=== PATIENT | female | born 1940 | race Caucasian/White ===

== ENCOUNTER 2019-03-27 13:27 | Inpatient (IN) ==
[2019-03-27] MEDS ORDERED: IOPAMIDOL 100 ML BOTTLE IV ONE (13:28)
--- NOTE | 2019-03-27 13:49 | Emergency Department Note ---
Neck Injury/Pain HPI - General Chief Complaint: Neck Pain/Injury Stated Complaint: right neck swelling, sorethroat Time Seen by Provider: 03/27/19 13:43 Mode of arrival: ambulatory Limitations: no limitations - History of Present Illness HPI Narrative: Patient has had a swelling develop in the right side of her neck over the last week. No history of trauma she does have a slight sore throat. - Related Data Home Medications Medication Instructions Recorded Confirmed ascorbic acid (vitamin C) 1,000 mg 1,000 mg PO QDAY tab 12/09/15 03/27/19 tablet calcium carbonate-vitamin D3 600 1 cap PO DAILY 12/09/15 03/27/19 mg (1,500 mg)-400 unit capsule coenzyme Q10 300 mg capsule 300 mg PO QDAY 12/09/15 03/27/19 glucosamine HCl 1,500 mg tablet 1,500 mg PO QDAY 12/09/15 03/27/19 multivitamin tablet 1 tab PO QDAY tab 12/09/15 03/27/19 cholecalciferol (vitamin D3) 5,000 5,000 unit PO QDAY 11/21/18 03/27/19 unit capsule hydrochlorothiazide 12.5 mg tablet 12.5 mg PO BID tab 01/09/19 03/27/19 omega-3 fatty acids 1,000 mg 1,000 mg PO QDAY 01/09/19 01/09/19 capsule Previous Rx's Medication Instructions Recorded carvedilol 25 mg tablet 25 mg PO BID #180 tab 11/21/18 raloxifene 60 mg tablet 60 mg PO QDAY #90 tab 11/21/18 Allergies Allergy/AdvReac Type Severity Reaction Status Date / Time No Known Drug Allergies Allergy Verified 03/27/19 13:30 Review of Systems All systems ED: reviewed and negative except as stated. 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 Does not pulsate and is quite separate from the carotid artery. It is a little tender. I do not detect fluctuance. Limitations: no limitations General appearance: alert Head: atraumatic Neurological: Present: alert Psychiatric: Present: normal affect Skin: Present: warm, dry Course Vital Signs Temperature 98.2 F 03/27/19 13:27 Pulse Rate 61 03/27/19 13:27 Respiratory Rate 18 03/27/19 13:27 Blood Pressure 149/65 03/27/19 13:27 Pulse Oximetry (%) 98 03/27/19 13:27 Temperature 98.2 F 03/27/19 20:01 Pulse Rate 75 03/27/19 20:01 Respiratory Rate 18 03/27/19 20:01 Blood Pressure 152/60 03/27/19 20:01 Pulse Oximetry (%) 94 03/27/19 20:01 Neck Pain - MDM Narrative Medical decision making narrative: CT shows a 5 cm abscess in the right parotid gland with thrombosis of the right external jugular vein. I did discuss this case with Dr. Gifford who recommended Eliquis after I&D. Dr. Jeffery came and saw the patient and decided to take her to the operating room for formal exploration and I&D. - Lab Data Lab results reviewed: Yes I reviewed the patient's lab results. Result diagrams: 03/27/19 15:33 03/27/19 15:33 Lab Results 03/27/19 03/27/19 03/27/19 Range/Units 14:00 15:33 15:33 WBC 8.7 (4.5-11.0) K/mcL RBC 3.42 L (4.00-5.20) M/mcL Hgb 10.6 L (12.0-15.0) g/dL Hct 31.7 L (36.0-48.0) % POC Hct 31.0 L (36.0-48.0) % MCV 92.8 (80.0-100.0) fL MCH 30.9 (26.0-34.0) pg MCHC 33.3 (31.0-36.0) g/dL RDW 12.4 (11.5-14.5) % Plt Count 220 (140-440) K/mcL MPV 8.2 (7.4-10.4) fL Gran % 74.3 (38.0-78.0) % Lymph % (Auto) 14.5 L (15.5-49.0) % [place] % (Auto) 10.2 (1.0-12.0) % Eos % (Auto) 0.7 (0.0-7.0) % Baso % (Auto) 0.3 (0.0-2.0) % Gran # 6.5 (1.8-8.0) K/mcL Lymph # (Auto) 1.3 L (1.5-4.8) K/mcL [place] # (Auto) 0.9 (0.1-0.9) K/mcL Eos # (Auto) 0.1 (0.0-0.7) K/mcL Baso # (Auto) 0 (0.0-0.3) K/mcL POC Sodium 124 L (133-145) mmol/L Sodium 124 L (133-145) mmol/L POC Potassium 3.2 L (3.3-5.1) mmol/L Potassium 3.3 (3.3-5.1) mmol/L POC Chloride 85 L (96-108) mmol/L Chloride 86 L (96-108) mmol/L Carbon Dioxide 25 (22-30) mmol/L POC Total CO2 27 (22-30) mmol/L Anion Gap 13.0 (8-16) POC BUN 12 (8-23) mg/dl BUN 13 (8-23) mg/dl Creatinine 0.8 (0.6-1.1) mg/dl POC Creatinine 0.8 (0.6-1.1) mg/dl GFR Calculation 70 Glucose 112 H (70-105) mg/dL POC Glucose 119 H (70-105) mg/dL Calcium 8.1 L (8.6-10.4) mg/dl POC WB Ioniz Calcium 1.07 L (1.16-1.32) mmol/L Total Bilirubin 0.6 (0.0-1.0) mg/dL AST 42 H (0-37) U/l ALT 40 (0-40) U/l Alkaline Phosphatase 126 H (39-117) U/L Total Protein 6.2 (5.9-8.4) gm/dL Albumin 3.1 L (3.2-5.2) gm/dL Globulin 3.1 (2.2-3.7) gm/dL Albumin/Globulin Ratio 1.0 (1.0-2.3) 03/27/19 Range/Units 20:21 WBC (4.5-11.0) K/mcL RBC (4.00-5.20) M/mcL Hgb (12.0-15.0) g/dL Hct (36.0-48.0) % POC Hct 33.0 L (36.0-48.0) % MCV (80.0-100.0) fL MCH (26.0-34.0) pg MCHC (31.0-36.0) g/dL RDW (11.5-14.5) % Plt Count (140-440) K/mcL MPV (7.4-10.4) fL Gran % (38.0-78.0) % Lymph % (Auto) (15.5-49.0) % [place] % (Auto) (1.0-12.0) % Eos % (Auto) (0.0-7.0) % Baso % (Auto) (0.0-2.0) % Gran # (1.8-8.0) K/mcL Lymph # (Auto) (1.5-4.8) K/mcL [place] # (Auto) (0.1-0.9) K/mcL Eos # (Auto) (0.0-0.7) K/mcL Baso # (Auto) (0.0-0.3) K/mcL POC Sodium 129 L (133-145) mmol/L Sodium (133-145) mmol/L POC Potassium 2.9 L* (3.3-5.1) mmol/L Potassium (3.3-5.1) mmol/L POC Chloride 91 L (96-108) mmol/L Chloride (96-108) mmol/L Carbon Dioxide (22-30) mmol/L POC Total CO2 26 (22-30) mmol/L Anion Gap (8-16) POC BUN 7 L (8-23) mg/dl BUN (8-23) mg/dl Creatinine (0.6-1.1) mg/dl POC Creatinine 0.7 (0.6-1.1) mg/dl GFR Calculation Glucose (70-105) mg/dL POC Glucose 126 H (70-105) mg/dL Calcium (8.6-10.4) mg/dl POC WB Ioniz Calcium 1.07 L (1.16-1.32) mmol/L Total Bilirubin (0.0-1.0) mg/dL AST (0-37) U/l ALT (0-40) U/l Alkaline Phosphatase (39-117) U/L Total Protein (5.9-8.4) gm/dL Albumin (3.2-5.2) gm/dL Globulin (2.2-3.7) gm/dL Albumin/Globulin Ratio (1.0-2.3) - Radiology Data Radiology results reviewed: Yes I reviewed the patient's radiology results. Disposition Pt seen by POSITION CLERK/PA only: No Clinical Impression: Parotid abscess Disposition: Xfer As Outpt/Obs ([facility]) Condition: Fair Time of Disposition: 20:36
[2019-03-27 14:10] LABS: POC Blood Urea Nitrogen 12 mg/dl (8-23); POC CO2 27 mmol/L (22-30); POC Calcium, Ionized 1.07 mmol/L (1.16-1.32); POC Chloride 85 mmol/L (96-108); POC Creatinine 0.8 mg/dl (0.6-1.1); POC Glucose, Random 119 mg/dL (70-105); POC Potassium 3.2 mmol/L (3.3-5.1); POC Sodium 124 mmol/L (133-145)
--- NOTE | 2019-03-27 14:56 | Cat Scan Report ---
CLINICAL INFORMATION: Right neck swelling COMPARISON: 03/16/2013 TECHNIQUE: 80 cc of Isovue-300 were injected intravenously and 25 seconds later, 2.5 mm helical slices were obtained from the inferior orbit through the supraclavicular region. Following reconstruction, 2.5 mm sagittal and coronal reformations were processed. The exam was reviewed at bone and soft tissue windows . The exam was performed using radiation dose optimization techniques including, but not limited to, automated exposure control, adjustment of the mA and/or kV according to patient size and use of iterative reconstruction technique. FINDINGS: There is a large (5.1 x 3.4 cm) thick-walled enhancing fluid collection nearly replacing the right parotid gland. This should represent a parotid abscess and associated parotiditis. Moderate inflammation is seen surrounding some fat with inflammatory thickening of the overlying the right sternocleidomastoid muscle. Few mildly enlarged reactive lymph nodes seen in the deep cervical region. The right internal jugular vein is not opacified and may be thrombosed related to infection and compression as it traverses this area of inflammation. The remainder of the carotid and jugular vascular system unremarkable. True and false focal cords, epiglottis, aryepiglottic folds, and common base. The soft tissues normal. Thyroid is unremarkable. The lung apices are normal. The spine demonstrates 5 mm of C4 anterior subluxation due to degenerative facet disease. At C4-5 there is severe right IV foraminal narrowing due to facet hypertrophy. At C5-6 moderate broad disc spur complex results in moderate central canal and severe bilateral lateral recess and IV foraminal narrowing impinging the exiting C6 nerve roots. C6-7 moderate broad disc spur complex results in moderate central canal and severe bilateral lateral recess IV foraminal narrowing impinging the exiting C7 nerve roots IMPRESSION: 1. Large (5 cm) thick-walled fluid collection dominating the right parotid gland which represents an abscess with associated parotiditis. There is myositis and the overlying the right sternocleidomastoid muscle. The right internal jugular vein is compressed by the abscess and is appears to be thrombosed. This could be confirmed with limited Doppler. 2. 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
--- NOTE | 2019-03-27 16:04 | Ultrasound Report ---
CLINICAL INFORMATION: Right parotid abscess parotiditis and COMPARISON: None. FINDINGS: 5 cm abscess dominates the right parotid gland with surrounding parotiditis. There is subocclusive thrombus in the proximal right internal jugular vein and complete occlusion in the mid/distal IJ segment in the region of abscess IMPRESSION: Complete thrombosis of the mid/distal right internal jugular vein with wall thickening. 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 This would put the patient at increased risk for sepsis. Suggest abscess drainage and broad-spectrum antibiotics Interpreted and Authenticated by: Jaswinder Brannon 03/27/19
[2019-03-27] MEDS ORDERED: LACTATED RINGERS 1,000 ML IV ONE (16:37)
[2019-03-27] MEDS ORDERED: VANCOMYCIN 1,000 MG in 0.9 % SODIUM CHLORIDE 250 ML IV ONE (16:37)
[2019-03-27 16:45] LABS: Basophils # (Auto) 0 K/mcL (0.0-0.3); Basophils % (Auto) 0.3 % (0.0-2.0); Eosinophils # (Auto) 0.1 K/mcL (0.0-0.7); Eosinophils % (Auto) 0.7 % (0.0-7.0); Granulocytes % (Auto) 74.3 % (38.0-78.0); Hematocrit 31.7 % (36.0-48.0); Hemoglobin 10.6 g/dL (12.0-15.0); Lymphocytes # (Auto) 1.3 K/mcL (1.5-4.8); Lymphocytes % (Auto) 14.5 % (15.5-49.0); Mean Cell Volume 92.8 fL (80.0-100.0); Mean Corpuscular HGB Conc 33.3 g/dL (31.0-36.0); Mean Platelet Volume 8.2 fL (7.4-10.4); Monocytes # (Auto) 0.9 K/mcL (0.1-0.9); Monocytes % (Auto) 10.2 % (1.0-12.0); Platelet Count 220 K/mcL (140-440); RBC 3.42 M/mcL (4.00-5.20); Red Cell Distribution Width 12.4 % (11.5-14.5); WBC 8.7 K/mcL (4.5-11.0)
[2019-03-27 16:54] LABS: ALT/SGPT 40 U/l (0-40); AST/SGOT 42 U/l (0-37); Albumin 3.1 gm/dL (3.2-5.2); Alkaline Phosphatase 126 U/L (39-117); Bilirubin,Total 0.6 mg/dL (0.0-1.0); Blood Urea Nitrogen 13 mg/dl (8-23); Calcium 8.1 mg/dl (8.6-10.4); Carbon Dioxide 25 mmol/L (22-30); Chloride 86 mmol/L (96-108); Globulin 3.1 gm/dL (2.2-3.7); Glomerular Filtration Rate 70; Glucose 112 mg/dL (70-105); Potassium 3.3 mmol/L (3.3-5.1); Sodium 124 mmol/L (133-145)
[2019-03-27] MEDS ORDERED: 0.9 % SODIUM CHLORIDE 1,000 ML IV ONE (17:13)
[2019-03-27 20:33] LABS: POC Blood Urea Nitrogen 7 mg/dl (8-23); POC CO2 26 mmol/L (22-30); POC Calcium, Ionized 1.07 mmol/L (1.16-1.32); POC Chloride 91 mmol/L (96-108); POC Creatinine 0.7 mg/dl (0.6-1.1); POC Glucose, Random 126 mg/dL (70-105); POC Potassium 2.9 mmol/L (3.3-5.1); POC Sodium 129 mmol/L (133-145)
[2019-03-27] MEDS ORDERED: DEXAMETHASONE 10 MG/ML VIAL IV ONE (20:45)
[2019-03-27] MEDS ORDERED: PROPOFOL 200 MG/20 ML VIAL IV ONE (20:45)
[2019-03-27] MEDS ORDERED: LIDOCAINE HCL/PF 100 MG/5 ML SYRINGE IV ONE (20:45)
[2019-03-27] MEDS ORDERED: ONDANSETRON 4 MG/2 ML VIAL IV ONE (20:45)
[2019-03-27] MEDS ORDERED: MIDAZOLAM 5 MG/5 ML VIAL IV ONE (20:45)
[2019-03-27] MEDS ORDERED: fentaNYL 100 MCG/2 ML VIAL IV ONE (20:45)
[2019-03-27] MEDS ORDERED: BACITRACIN TOPICAL OINT 15 GM TUBE TOPICAL ONE (21:44)
--- NOTE | 2019-03-27 22:08 | Internal Medicine Consult Note ---
Medical - CN: HPI - Data of Consult Consult date: 03/27/19 Requesting physician: Jovan Sandy Primary Care Provider: Anna Brannon, DO - Consult Narrative Reason for consult: Postoperative consult for right IJ thrombosis/hyponatremia History of present illness: Ms. Alcaraz is a 78 year old F otherwise healthy who presented the ER with worsening right-sided neck swelling and pain that evolved over the last 24 hours. Patient denies recent dental infection or mumps. She denies sore throat or pharyngitis or URI symptoms. Initial work-up in the ER was consistent with large abscess along with right IJ thrombosis. ENT was consulted and patient underwent operative drainage of the neck abscess. Postoperatively hospitalist service is consulted for management of IJ thrombosis/hyponatremia at 124/low potassium at 2.9. Patient was seen postoperatively. She denies active distress. She is currently on room air. She denies shaking chills, fever, diarrhea, shortness of breath. She further denies lightheadedness photophobia or tearing neck pain. She further denies bloody sputum/pleuritic chest pain. Review of systems A 10 point review systems was performed and is negative except was discussed above CC: Jovan Sandy Medical - CN: [facility] Medical history: Hypertension (Chronic) Osteoarthritis (Chronic) Encounter for Health Maintenance Examination in Adult (Chronic) Parotid mass (Chronic) 04/23/[address] Sandy. 08/08/13 Negative right parotid biopsy. Palpitations (Chronic 11/02/13) holter 03/2013 Osteoporosis (Chronic) Bone density 10/02/10-Lumbar T-score -1.3;Hip T-score -1.4 on Evista; Adequate calcium & vitamin D. Osteopenia (Chronic 11/02/13) Low back pain (Chronic) Occasional low back pain (occ. sees chiropractor). 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 Singh-transverse colonic polyp found to be benign colonic mucosa-no evidence of neoplasia. 10 year sequence. Anemia, iron deficiency (Chronic 09/27/08) Er visit 07/15/12, HCT 31.7. CBC repeated 08/02 w. improved HCT at 33.7; iron sat. low at 8%. Reviewed in office 08/07. EGD and colonoscopy set with Dr. Toussaint to evaluate iron deficiency anemia. Colonoscopy 08/29/12 revealed mild diverticulosis and small internal hemorrhoids but nothing to explain the iron deficiency anemia. EGD 09/05/12-endoscopic appearance of the duodenum suggested celiac disease although biopsies from duodenum showed only mild lymphocyte populations. Celiac panel also negative, Patient declined with (Dr. Toussaint) further workup from a GI standpoint. 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 Galindo, [facility] [place] Leukocytopenia (Inactive 09/16/09) mild leukopenia/lymphocytosis, without frequent infections. Surgical History Hx of oophorectomy (Chronic 01/28/12) 01/28/12-Dr. Martin-D&C, Bilateral oophorectomy Hx of colonoscopy (Chronic 08/07/02) Colonoscopy 08/07/02-Dr. Singh-transverse colonic polyp found to be benign colonic mucosa-no evidence of neoplasia. Rescreen 10 years. Colonoscopy 08/29/12-Dr. Toussaint-Revealed mild diverticulosis and small internal hemorrhoids but nothing to explain the iron deficiency anemia. 10-year rescrren. Hx of esophagogastroduodenoscopy (Inactive 09/05/12) EGD 09/05/12-Dr. Toussaint-endoscopic appearance of the duodenum suggested celiac disease although biopsies from duodenum showed only mild lymphocyte p opulations. Celiac panel also negative. EGD done to evaluate iron deficiency anemia. Family History Mother Malignant neoplasm of ovary With this positive family history(mother) of ovarian CA, patient herself has had stable bimanual(last pap 2007) but requested CA 125 at [facility] 2009 which was normal. Father Diabetes mellitus borderline diabetic Social History marital status: occupational status: retired smoking status: Never smoker alcohol intake frequency: holiday/special occasion only substance use type: does not use Reproductive History Menstrual control method: none Total pregnancies: 2 Full term: 2 Medical - CN: Meds Home Medications Medication Instructions Recorded Confirmed Type ascorbic acid (vitamin C) 1,000 mg 1,000 mg PO QDAY tab 12/09/15 03/27/19 H istory tablet calcium carbonate-vitamin D3 600 1 cap PO DAILY 12/09/15 03/27/19 History mg (1,500 mg)-400 unit capsule coenzyme Q10 300 mg capsule 300 mg PO QDAY 12/09/15 03/27/19 History glucosamine HCl 1,500 mg tablet 1,500 mg PO QDAY 12/09/15 03/27/19 History multivitamin tablet 1 tab PO QDAY tab 12/09/15 03/27/19 History carvedilol 25 mg tablet 25 mg PO BID #180 tab 11/21/18 03/27/19 Rx cholecalciferol (vitamin D3) 5,000 5,000 unit PO QDAY 11/21/18 03/27/19 History unit capsule raloxifene 60 mg tablet 60 mg PO QDAY #90 tab 11/21/18 01/09/19 Rx hydrochlorothiazide 12.5 mg tablet 12.5 mg PO BID tab 01/09/19 03/27/19 History omega-3 fatty acids 1,000 mg 1,000 mg PO QDAY 01/09/19 01/09/19 History capsule Allergies Allergy/AdvReac Type Severity Reaction Status Date / Time No Known Drug Allergies Allergy Verified 03/27/19 13:30 Medical - CN: Exam - Constitutional Vitals: Temp Pulse Resp BP Pulse Ox 98.1 F 87 16 141/50 98 03/27/19 22:00 03/27/19 22:00 03/27/19 22:00 03/27/19 22:00 03/27/19 22:00 General appearance: no acute distress Exam: Alert oriented Head normocephalic pupils symmetric No ear nose discharge Oral cavity dry Right side of neck postoperative dressing, swelling S1-S2 regular rhythm diminished breath sounds bases Abdomen soft nontender Skin no suspicious lesion Psych alert cooperative neuro nonfocal Medical - CN: Result - Labs CBC & Chem 7: 03/27/19 15:33 03/27/19 15:33 Labs: Short CBC 03/27/19 Range/Units 15:33 WBC 8.7 (4.5-11.0) K/mcL Hgb 10.6 L (12.0-15.0) g/dL Hct 31.7 L (36.0-48.0) % Plt Count 220 (140-440) K/mcL BMP 03/27/19 15:33 Sodium 124 L Potassium 3.3 Chloride 86 L Carbon Dioxide 25 BUN 13 Creatinine 0.8 Glucose 112 H Calcium 8.1 L Liver Function 03/27/19 Range/Units 15:33 Total Bilirubin 0.6 (0.0-1.0) mg/dL AST 42 H (0-37) U/l ALT 40 (0-40) U/l Alkaline Phosphatase 126 H (39-117) U/L Albumin 3.1 L (3.2-5.2) gm/dL Medical - CN: A/P (1) Lemierre syndrome Status: Acute Assessment and plan: * Neck abscess status post drainage by ENT. Postoperative management per ENT. Continue close airway monitoring Hospitalist consult * Septic IJ thrombophlebitis secondary to neck abscess-start coverage on Zosyn and vancomycin. Initiate anticoagulation. Further evaluation to rule out septic emboli. Inpatient admission and continued treatment and follow-up. Await blood cultures * IJ thrombosis-initiate full dose anticoagulation * Hyponatremia-likely secondary to alcoholism/hydrochlorothiazide use. Continue monitoring * Hypokalemia-replacement * History of hypertension continue Coreg/thiazide * Regular alcohol use-close monitoring for withdrawal * Full code * Prophylaxis currently full dose Lovenox Plan * Admit to telemetry * Antibiotic coverage * potassium replacement * Airway monitoring * Anticoagulation * Further imaging to rule out septic emboli * ID consult
[2019-03-27] MEDS ORDERED: ACETAMINOPHEN 1,000 MG/100 ML BOTTLE IV PRN (22:37)
[2019-03-27] MEDS ORDERED: MAGNESIUM HYDROXIDE 30 ML ORAL.SUSP PO PRN (22:37)
[2019-03-27] MEDS ORDERED: MELATONIN 3 MG TABLET PO PRN (22:37)
[2019-03-27] MEDS ORDERED: POTASSIUM CHLORIDE 40 MEQ in DEXTROSE 5% IN WATER 500 ML IV PRN (22:37)
[2019-03-27] MEDS ORDERED: VANCOMYCIN PER PHARMACY IV SCH (22:37)
[2019-03-27] MEDS ORDERED: HYDROmorphone 2 MG/ML VIAL IV PRN (22:37)
[2019-03-27] MEDS ORDERED: MAGNESIUM SULFATE 2 GM/50 ML BAG IV PRN (22:37)
[2019-03-27] MEDS ORDERED: ONDANSETRON 4 MG/2 ML VIAL IV PRN (22:37)
[2019-03-27] MEDS ORDERED: 0.9 % SODIUM CHLORIDE 1,000 ML IV SCH (22:37)
[2019-03-27] MEDS ORDERED: ACETAMINOPHEN 325 MG TABLET PO PRN (22:37)
[2019-03-27] MEDS ORDERED: POTASSIUM CHLORIDE 20 MEQ PACKET PO PRN (22:37)
[2019-03-27] MEDS ORDERED: guaiFENesin/CODEINE 10 ML UDC PO PRN (22:37)
[2019-03-27] MEDS ORDERED: VANCOMYCIN 500 MG in 0.9 % SODIUM CHLORIDE 100 ML IV ONE (22:39)
[2019-03-27] MEDS ORDERED: ENOXAPARIN 80 MG/0.8 ML SYRINGE ONE (23:09)
[2019-03-27] MEDS: ENOXAPARIN 60 MG/0.6 ML SYRINGE SQ SCH (23:18)
[2019-03-27] MEDS: 0.9 % SODIUM CHLORIDE 10 ML SYRINGE IV SCH (23:19)
[2019-03-27] MEDS: PIPERACILLIN SODIUM/TAZOBACTAM 3.375 GM in DEXTROSE 5% IN WATER 50 ML IV SCH (23:20)
[2019-03-28] LABS: C-Reactive Protein 12.7 mg/dl (0.0-0.8)
[2019-03-28] MEDS ORDERED: POTASSIUM CHLORIDE 20 MEQ/10 ML VIAL IV ONE (02:21)
[2019-03-28] MEDS ORDERED: POTASSIUM CHLORIDE 20 MEQ TABLET PO ONE ×2 (02:33→02:37)
[2019-03-28] MEDS: PIPERACILLIN SODIUM/TAZOBACTAM 3.375 GM in DEXTROSE 5% IN WATER 50 ML IV SCH ×4 (05:03→23:59)
[2019-03-28] MEDS: 0.9 % SODIUM CHLORIDE 10 ML SYRINGE IV SCH ×3 (05:03→22:50)
--- NOTE | 2019-03-28 06:49 | Cat Scan Report ---
CLINICAL INFORMATION: Recent surgical drainage of right parotid abscess. CT was requested for abscess localization relative to the surgical site COMPARISON: Presurgical CT performed the same day - 03/27/2019 1435 hours. TECHNIQUE: 0.625 mm helical slices were obtained from the inferior orbit through the supraclavicular region. Following reconstruction, 2.5 mm sagittal and coronal reformations were processed. The exam was reviewed at bone and soft tissue windows . The exam was performed using radiation dose optimization techniques including, but not limited to, automated exposure control, adjustment of the mA and/or kV according to patient size and use of iterative reconstruction technique. FINDINGS: There is now a drain and a surgical defect in the superficial soft tissues overlying the right parotid gland. The deep extent of surgical excision is approximately 1 cm superior and anterior to the margin of the abscess. The 5 cm abscess in the right parotid gland is unchanged and there is inflammation in entire parotid gland including the soft tissues. No other changes from the exam earlier today. Without contrast, the known thrombus in the right internal jugular vein, cannot be visualized IMPRESSION: Surgical excision in the superficial soft tissues over the right parotid gland. It is less than 1 cm superior and anterior to the abscess. Interpreted and Authenticated by: Jaswinder Brannon 03/28/19
[2019-03-28 07:49] LABS: Hematocrit 35.7 % (36.0-48.0); Hemoglobin 11.9 g/dL (12.0-15.0); Mean Cell Volume 93.8 fL (80.0-100.0); Mean Corpuscular HGB Conc 33.4 g/dL (31.0-36.0); Platelet Count 259 K/mcL (140-440); Red Cell Distribution Width 12.3 % (11.5-14.5); WBC 9.6 K/mcL (4.5-11.0)
[2019-03-28] MEDS ORDERED: CARVEDILOL 12.5 MG TABLET PO SCH (08:00)
[2019-03-28 08:46] LABS: ALT/SGPT 29 U/l (0-40); AST/SGOT 22 U/l (0-37); Albumin 2.7 gm/dL (3.2-5.2); Albumin/Globulin Ratio 0.8 (1.0-2.3); Alkaline Phosphatase 112 U/L (39-117); Bilirubin,Direct < 0.2 mg/dL (0.0-0.3); Bilirubin,Total 0.3 mg/dL (0.0-1.0); Blood Urea Nitrogen 10 mg/dl (8-23); Calcium 8.3 mg/dl (8.6-10.4); Carbon Dioxide 24 mmol/L (22-30); Chloride 93 mmol/L (96-108); Globulin 3.3 gm/dL (2.2-3.7); Glomerular Filtration Rate 70; Glucose 256 mg/dL (70-105); Lactate Dehydrogenase 142 U/L (94-250); Magnesium 1.9 mg/dL (1.6-2.5); Phosphorous 1.9 mg/dL (2.7-4.5); Potassium 4.4 mmol/L (3.3-5.1); Sodium 126 mmol/L (133-145); Triglycerides 47 mg/dl (<150); Uric Acid 2.2 mg/dL (2.5-8.0)
[2019-03-28] MEDS ORDERED: VANCOMYCIN 1,000 MG in 0.9 % SODIUM CHLORIDE 250 ML IV SCH (09:00)
[2019-03-28] MEDS ORDERED: MULTIVIT,THER IRON,CA,FA & MIN 1 TABLET PO SCH ×2 (09:00)
[2019-03-28] MEDS ORDERED: CO Q10 300 MG PO SCH (09:00)
[2019-03-28] MEDS ORDERED: VITAMIN D3 5,000 UNIT CAPSULE PO SCH (09:00)
[2019-03-28] MEDS ORDERED: ASCORBIC ACID 500 MG TABLET PO SCH (09:00)
[2019-03-28] MEDS: DOCUSATE SODIUM 100 MG CAPSULE PO SCH ×3 (09:10→21:22)
[2019-03-28] MEDS: ENOXAPARIN 60 MG/0.6 ML SYRINGE SQ SCH ×2 (09:10→21:23)
[2019-03-28 10:26] LABS: Band Neutrophils % 2 % (0-10); Lymphocytes % 8 % (15-49); Monocytes % (Manual) 3 % (1-12); Platelet Estimate NORMAL (NORMAL); RBC Morphology NORMAL (NORMAL); Segmented Neutrophils % 87 % (38-78)
--- NOTE | 2019-03-28 11:13 | Internal Med Progress Note ---
Medical - PN: Subj Patient information: Note initiated : 03/28/19 at 11:10 am Service Date, if different from initiated Date: [] Patient: Suad Alcaraz a 78 y/o F admitted on 03/27/19 for right neck swelling, sorethroat. Chief Complaint: [] Interval history: Ms. Alcaraz is a 78 year old F otherwise healthy who presented the ER with worsening right-sided neck swelling and pain that evolved over the last 24 hours . Patient denies recent dental infection or mumps. She denies sore throat or pharyngitis or URI symptoms. Initial work-up in the ER was consistent with large abscess along with right IJ thrombosis. ENT was consulted and patient underwent operative drainage of the neck abscess. Postoperatively hospitalist service is consulted for management of IJ thrombosis/hyponatremia at 124/low potassium at 2.9. Patient was seen postoperatively. She denies active distress. She is currently on room air. She denies shaking chills, fever, diarrhea, shortness of breath. She further denies lightheadedness photophobia or tearing neck pain. She further denies bloody sputum/pleuritic chest pain. 03/28-patient doing a lot better. Improve neck pain swelling. Denies fever shaking chills chest pain or pleuritic chest pain. Denies night sweats or fever. On anticoagulation. Discussed treatment plan including continuation of antibiotics for additional 7 days along with anticoagulation in light of IJ thrombosis. Patient will likely discharge in 24 hours with outpatient follow-up with ENT. - Constitutional Vitals: Vital Signs Temp Pulse Resp BP Pulse Ox 98.7 F 74 22 132/71 95 03/28/19 08:09 03/28/19 08:09 03/28/19 08:09 03/28/19 08:09 03/28/19 08:09 Period Temp Pulse Resp BP Sys/Zamorano Pulse Ox Last 24 Hr 98.0 F-100.9 F 58-87 11- 106-168/43-97 90-100 Intake and Output 03/27/19 03/28/19 03/28/19 21:59 05:59 13:59 Intake Total 1644 331 8038 Output Total 1075 400 Balance 1950 -589 660 Weight 144 lb 6.4 oz Intake & Output: Intake & Output 03/27/19 03/28/19 03/28/19 21:59 05:59 13:59 Intake Total 0989 814 4939 Output Total 1075 400 Balance 1950 -589 660 Weight 144 lb 6.4 oz Intake: IV 1250 150 820 Sodium Chloride 0.9% 1,000 ml @ 1000 Wide Open IV BOLUS ONE Rx#: [id number] Zosyn 3.375 gm In Dextrose 5% 50 50 in Water 50 ml @ 100 mls/hr IV Q6H [facility] Rx#:[id number] Potassium Chloride 40 Meq In 520 Dextrose 5% in Water 500 ml @ 130 mls/hr IV UD PRN Rx#: [id number] Vancomycin 500 mg In Sodium 100 Chloride 0.9% 100 ml @ 100 mls/ hr IV ONCE ONE Rx#:[id number] Vancomycin 1,000 mg In Sodium 250 250 Chloride 0.9% 250 ml @ 250 mls/ hr IV Q12H [facility] Rx#:[id number] Oral 336 240 IV - Manual Only 700 Output: Void Amount 1075 400 Other: Meal Breakfast Percent of Meal Consumed 75% Feeding Ability Independent Urine Appearance Clear Urine Color Pale Urine Odor Normal General appearance: no acute distress Exam: Alert Nonlabored breathing No significant neck swelling No dysphagia dysarthria No rash or joint swelling Medical - PN: Obj Da - Labs CBC & Chem 7: 03/28/19 07:06 03/28/19 07:05 Labs: Abnormal Lab Results 03/28/19 03/28/19 03/27/19 07:06 07:05 22:45 RBC 3.80 L Hgb 11.9 L Hct 35.7 L POC Hct Lymph % (Auto) Lymph # (Auto) Seg Neutrophils % 87 H Lymphocytes % 8 L ESR 54 H POC Sodium Sodium 126 L POC Potassium POC Chloride Chloride 93 L POC BUN Glucose 256 H POC Glucose Uric Acid 2.2 L Calcium 8.3 L POC WB Ioniz Calcium Phosphorus 1.9 L GGT 80 H AST Alkaline Phosphatase C-Reactive Protein Albumin 2.7 L Albumin/Globulin Ratio 0.8 L 03/27/19 03/27/19 03/27/19 22:45 20:21 15:33 RBC Hgb Hct POC Hct 33.0 L Lymph % (Auto) Lymph # (Auto) Seg Neutrophils % Lymphocytes % ESR POC Sodium 129 L Sodium 124 L POC Potassium 2.9 L* POC Chloride 91 L Chloride 86 L POC BUN 7 L Glucose 112 H POC Glucose 126 H Uric Acid Calcium 8.1 L POC WB Ioniz Calcium 1.07 L Phosphorus GGT AST 42 H Alkaline Phosphatase 126 H C-Reactive Protein 12.7 H Albumin 3.1 L Albumin/Globulin Ratio 03/27/19 03/27/19 15:33 14:00 RBC 3.42 L Hgb 10.6 L Hct 31.7 L POC Hct 31.0 L Lymph % (Auto) 14.5 L Lymph # (Auto) 1.3 L Seg Neutrophils % Lymphocytes % ESR POC Sodium 124 L Sodium POC Potassium 3.2 L POC Chloride 85 L Chloride POC BUN Glucose POC Glucose 119 H Uric Acid Calcium POC WB Ioniz Calcium 1.07 L Phosphorus GGT AST Alkaline Phosphatase C-Reactive Protein Albumin Albumin/Globulin Ratio Meds: Medications Acetaminophen (Tylenol) 650 mg PO Q4-6HP PRN PRN Reason: PAIN/FEVER > 101 Ascorbic Acid (Vitamin C) 1,000 mg PO QDAY [facility] Last Admin: 03/28/19 09:10 Dose: 1,000 mg Documented by: [facility] Admin: 03/28/19 09:10 Dose: 25 mg Documented by: Docusate Sodium (Colace) 100 mg PO BID [facility] Last Admin: 03/28/19 09:19 Dose: Not Given Documented by: Enoxaparin Sodium (Lovenox) 60 mg SQ BID [facility] Last Admin: 03/28/19 09:10 Dose: 60 mg Documented by: Guaifenesin/Codeine Phosphate (Robitussin Ac) 10 ml PO Q4HP PRN PRN Reason: Cough Hydromorphone HCl (Dilaudid) 0 mg IV Q4HP PRN PRN Reason: PAIN LEVEL > 6 Potassium Chloride 40 meq/ (Dextrose) 520 mls @ 130 mls/hr IV UD PRN PRN Reason: K+ = or < 3.5 Last Infusion: 03/28/19 06:26 Dose: Infused Documented by: Magnesium Sulfate (Magnesium Sulfate) 2 gm in 50 mls @ 50 mls/hr IV UD PRN PRN Reason: MG = or < 1.7 Sodium Chloride (Sodium Chloride 0.9%) 1,000 mls @ 50 mls/hr IV .Q20H [facility] Stop: 03/30/19 10:36 Last Admin: 03/28/19 01:45 Dose: 50 mls/hr Documented by: Acetaminophen (Ofirmev) 1,000 mg in 100 mls @ 200 mls/hr IV Q6HP PRN PRN Reason: PAIN/FEVER > 101 Piperacillin Sod/Tazobactam (Sod 3.375 gm/ Dextrose) 50 mls @ 100 mls/hr IV Q6H [facility]; Protocol Last Infusion: 03/28/19 06:03 Dose: Infused Documented by: Vancomycin HCl 1,000 mg/ (Sodium Chloride) 250 mls @ 250 mls/hr IV Q12H [facility] Last Infusion: 03/28/19 10:24 Dose: Infused Documented by: Iron Carb/Multivit/Holley/Folic Acid (Multivitamin W/Minerals) 1 tab PO DAILY [facility] Last Admin: 03/28/19 09:10 Dose: 1 tab Documented by: Iron Carb/Multivit/Client Support Analyst/Folic Acid (Multivitamin W/Minerals) 1 tab PO DAILY [facility] Last Admin: 03/28/19 09:11 Dose: Not Given Documented by: Magnesium Hydroxide (Milk Of Magnesia) 30 ml PO [facility] PRN PRN Reason: Constipation Melatonin (Melatonin 3mg Tablet) 3 mg PO HSP PRN PRN Reason: Insomnia Ondansetron HCl (Zofran) 4 mg IV Q4-6HP PRN PRN Reason: Nausea And Vomiting Co Q-10 300 Mg 1 dose PO DAILY [facility] Last Admin: 03/28/19 09:11 Dose: Not Given Documented by: Potassium Chloride (Klor-Con) 40 meq PO DAILYP PRN PRN Reason: K+ < 3.5 Senna/Docusate Sodium (Senna Plus Tablet) 1 tab PO [facility] Sodium Chloride (Saline Flush) 10 ml IV Q8 [facility] Last Admin: 03/28/19 05:03 Dose: 10 ml Documented by: Vancomycin HCl (Vancomycin Per Pharmacy) 1 order IV UD [facility]; Protocol Vitamin D (Vitamin D3) 5,000 unit PO QDAY [facility] Last Admin: 03/28/19 09:10 Dose: 5,000 unit Documented by: Medical - PN: A/P - Time Spent With Patient Total time spent is greater than 50% in coordination of care (as documented) at patient's floor/unit and/or counseling patient: 25 - 35 minutes (1) Lemierre syndrome Status: Acute Assessment and plan: * 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 Status post neck abscess drainage. 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 10 mg BID for 7 days followed by 5 mg twice daily * Hyponatremia-likely secondary to alcoholism/hydrochlorothiazide use. Around 129 * Hypokalemia-resolved with replacement. * History of hypertension continue Coreg/restart thiazide * Regular alcohol use-close monitoring for withdrawal * Full code * Prophylaxis currently full dose Lovenox Plan * Continue airway monitoring * Antibiotic coverage to de-escalate based on cultures * Anticoagulation on Eliquis Current Visit: Yes Medical - PN: Qual - VTE Deep Vein Thrombosis/Pulmonary Embolism Present on Admission: No
--- NOTE | 2019-03-28 12:27 | Operative Note ---
DATE OF OPERATION: 03/27/2019 PREOPERATIVE DIAGNOSIS: Right neck swelling. POSTOPERATIVE DIAGNOSIS: Right neck swelling. PROCEDURE PERFORMED: I and D of a right neck abscess. SURGEON: Max Sandy D.O. SPONGE COUNTS: Correct. ESTIMATED BLOOD LOSS: Minimal. COMPLICATIONS: None. DESCRIPTION OF PROCEDURE: The patient was administered a general anesthetic and LMA was placed in the oral cavity without difficulty. Head was turned to the right and given a standard prep and drape. I previously in the emergency room tried to perform an I and D on this, but the abscess was a little too deep, and I was unable to give her adequate pain control, so this will be completing the procedure in the OR. Once she was given a prep and drape, the incision was more widely opened. The anterior belly of the sternocleidomastoid muscle was seen, and this was reflected in a posterior direction. Once that was accomplished, the mass was seen in essentially zone 3 region of the neck. This was entered with a hemostat and copious amount of yellow, tenacious material was opened. This was suctioned and cultures were taken. This was further enlarged with a blunt-tipped hemostat and then was sucked out with a Lockett. The wound was then washed and was irrigated with antibiotic-impregnated irrigant and then was cleaned. Once that was accomplished, a [place] drain was placed into the wound. The wound was closed in a layered fashion with Vicryls, as well as with nylons, and was left to drain externally. Overall, she tolerated the procedure well and was taken back to PACU in satisfactory condition. [email or web address] Job ID: [id number] Doc ID: [id number] Max Sandy DO
[2019-03-28] MEDS ORDERED: ACETAMINOPHEN 1,000 MG/100 ML BOTTLE IV PRN (13:31)
[2019-03-28] MEDS ORDERED: MAGNESIUM SULFATE 2 GM/50 ML BAG IV PRN (13:31)
[2019-03-28] MEDS ORDERED: guaiFENesin/CODEINE 10 ML UDC PO PRN (13:31)
[2019-03-28] MEDS ORDERED: POTASSIUM CHLORIDE 40 MEQ in DEXTROSE 5% IN WATER 500 ML IV PRN (13:31)
[2019-03-28] MEDS ORDERED: HYDROmorphone 2 MG/ML VIAL IV PRN (13:31)
[2019-03-28] MEDS ORDERED: VANCOMYCIN PER PHARMACY IV SCH (13:31)
[2019-03-28] MEDS ORDERED: MELATONIN 3 MG TABLET PO PRN (13:31)
[2019-03-28] MEDS ORDERED: ONDANSETRON 4 MG/2 ML VIAL IV PRN (13:31)
[2019-03-28] MEDS ORDERED: POTASSIUM CHLORIDE 20 MEQ PACKET PO PRN (13:31)
[2019-03-28] MEDS ORDERED: ACETAMINOPHEN 325 MG TABLET PO PRN (13:31)
[2019-03-28] MEDS ORDERED: MAGNESIUM HYDROXIDE 30 ML ORAL.SUSP PO PRN (13:31)
[2019-03-28] MEDS: 0.9 % SODIUM CHLORIDE 1,000 ML IV SCH (13:55)
--- NOTE | 2019-03-28 14:09 | Infectious Disease Consult ---
History of Present Illness Patient information: Note initiated : 03/28/19 at 2:07 pm Service Date, if different from initiated Date: [] Patient: Suad Alcaraz 78 y/o F admitted on 03/27/19 for right neck swelling, sorethroat. Chief Complaint: [] Consult date: 03/28/19 Requesting Physician: Kirk Diego Reason for Consult: Concerns for septic internal jugular vein thrombophlebitis Chief complaint: my neck hurts History of present illness: 78 year old lady with PMHx of: - benign neck tumor resection about 5-6 years ago Pt is otherwise healthy, and noticed acute onset right neck swelling on 03/24 which progressed to size of a small tennis ball on 03/27. The swelling was accompanied with right angle of jaw pain. Pt denied any fever, chills, cough, chest pain, pain while eating food, recent sore throat, tooth infection, sick contacts. In ER: VS were unremarkable: HR 61, RR 18, temp 98.2F, BP 149/65, satting 98% on RA. WBC 8.7, Cr 0.8. US neck on 03/27 showed: "5 cm abscess dominates the right parotid gland with surrounding parotiditis. There is subocclusive thrombus in the proximal right internal jugular vein and complete occlusion in the mid/distal IJ segment in the region of abscess". A soft tissue neck CT with inclusion of lung apices showed: Large (5 cm) thick-walled fluid collection dominating the right parotid gland which represents an abscess with associated parotiditis. There is myositis and the overlying the right sternocleidomastoid muscle. The right internal jugular vein is compressed by the abscess and is appears to be thrombosed. This could be confirmed with limited Doppler. Lung apices were normal. Pt was admitted and underwent superficial I&D by Dr Sandy (ENT) in ED and then taken to OR for I&D and placement of a abigail drain. Blood Cx (2 sets) were sent. Pt was started on IV Vanc and IV Zosyn. She has done fine post-op. At time of my visit, she confirmed the above Hx. Feels fine except for the neck pain. Discussed the concerns for clot in internal jugular vein in the area where her infection was, plan for a PICC line placement and treatment with antibioti cs for 4-6 weeks. Review of Systems All systems PM: reviewed and no additional remarkable complaints except as stated Past History Past family history: not pertinent to current presentation Past social history: doesnot smoke Medications and Allergies Home Medications Medication Instructions Recorded Confirmed Type ascorbic acid (vitamin C) 1,000 mg 1,000 mg PO QDAY tab 12/09/15 03/27/19 History tablet calcium carbonate-vitamin D3 600 1 cap PO DAILY 12/09/15 03/27/19 History mg (1,500 mg)-400 unit capsule coenzyme Q10 300 mg capsule 300 mg PO QDAY 12/09/15 03/27/19 History glucosamine HCl 1,500 mg tablet 1,500 mg PO QDAY 12/09/15 03/27/19 History multivitamin tablet 1 tab PO QDAY tab 12/09/15 03/27/19 History carvedilol 25 mg tablet 25 mg PO BID #180 tab 11/21/18 03/27/19 Rx cholecalciferol (vitamin D3) 5,000 5,000 unit PO QDAY 11/21/18 03/27/19 History unit capsule raloxifene 60 mg tablet 60 mg PO QDAY #90 tab 11/21/18 01/09/19 Rx hydrochlorothiazide 12.5 mg tablet 12.5 mg PO BID tab 01/09/19 03/27/19 History omega-3 fatty acids 1,000 mg 1,000 mg PO QDAY 01/09/19 01/09/19 History capsule Allergies Allergy/AdvReac Type Severity Reaction Status Date / Time No Known Drug Allergies Allergy Verified 03/27/19 13:30 Physical Examination Vital signs: Temp Pulse Resp BP Pulse Ox 36.7 C 63 19 118/57 100 03/28/19 12:15 03/28/19 12:15 03/28/19 12:15 03/28/19 12:15 03/28/19 12:15 General appearance: no acute distress Eyes pulmonary: nonicteric ENT: other (no thrush, no oral ulcers) Neck: other (has linear incision on the right side of neck and jaw, sutures and abigail drain in place with serosanguineous drainage on dressing, tender, swollen, no discoloration, no superficial skin lesions) Auscultation: bilateral: clear Cardiovascular: regular rate and rhythm (s1 s2 normal, no m/r/g), other Extremities: no edema normal mental status, non-focal exam, motor strength normal and symmetric Results - Laboratory Findings CBC and BMP: 03/29/19 03:40 03/29/19 03:40 Abnormal lab findings: Abnormal Labs 03/27/19 03/27/19 03/27/19 14:00 15:33 15:33 RBC 3.42 L Hgb 10.6 L Hct 31.7 L POC Hct 31.0 L Lymph % (Auto) 14.5 L Lymph # (Auto) 1.3 L Seg Neutrophils % Lymphocytes % ESR POC Sodium 124 L Sodium 124 L POC Potassium 3.2 L POC Chloride 85 L Chloride 86 L POC BUN Glucose 112 H POC Glucose 119 H Uric Acid Calcium 8.1 L POC WB Ioniz Calcium 1.07 L Phosphorus GGT AST 42 H Alkaline Phosphatase 126 H C-Reactive Protein Albumin 3.1 L Albumin/Globulin Ratio 03/27/19 03/27/19 03/27/19 20:21 22:45 22:45 RBC Hgb Hct POC Hct 33.0 L Lymph % (Auto) Lymph # (Auto) Seg Neutrophils % Lymphocytes % ESR 54 H POC Sodium 129 L Sodium POC Potassium 2.9 L* POC Chloride 91 L Chloride POC BUN 7 L Glucose POC Glucose 126 H Uric Acid Calcium POC WB Ioniz Calcium 1.07 L Phosphorus GGT AST Alkaline Phosphatase C-Reactive Protein 12.7 H Albumin Albumin/Globulin Ratio 03/28/19 03/28/19 07:05 07:06 RBC 3.80 L Hgb 11.9 L Hct 35.7 L POC Hct Lymph % (Auto) Lymph # (Auto) Seg Neutrophils % 87 H Lymphocytes % 8 L ESR POC Sodium Sodium 126 L POC Potassium POC Chloride Chloride 93 L POC BUN Glucose 256 H POC Glucose Uric Acid 2.2 L Calcium 8.3 L POC WB Ioniz Calcium Phosphorus 1.9 L GGT 80 H AST Alkaline Phosphatase C-Reactive Protein Albumin 2.7 L Albumin/Globulin Ratio 0.8 L Microbiology: Microbiology 03/27/19 21:37 Neck - Right Gram Stain - Final 03/27/19 21:37 Neck - Right Anaerobic Culture - Preliminary 03/27/19 21:37 Neck - Right Gram Stain - Final 03/28/19 07:24 Nose - Both Right and Left MRSA (PCR) - Final Assessment and Plan - Narrative A/P Narrative: A: 1. Rt parotid abscess with parotiditis: - POD 1 after I&D, wound Cx pending results. GS showing GPC in clusters and chains - no sepsis 2. Rt IJ vein thrombus: concerns for septic thrombophlebitis - US and CT s/o subocclusive thrombus in the proximal right internal jugular vein and complete occlusion in the mid/distal IJ segment in the region of abscess 3. No concerns for embolic phenomenon clinically - will get CXR to look for septic emboli Recommendations: - Continue IV Vanc per pharmacy assisted dosing. Check serum vanc trough before the 4th dose (target 10-20) - Continue IV Zosyn 3.375 gm q6 hrs - will order a CXR with 2 views - await wound and blood Cx results. If blood Cx neg by tomorrow, she could get a PICC line. will make further antibiotic changes based on these cultures - anticipate at least 4 weeks of IV antibiotics will follow Garett Benz MD Infectious diseases
--- NOTE | 2019-03-28 14:36 | XRay Report ---
CLINICAL INFORMATION: to r/o any septic emboli COMPARISON: 02/07/2018 FINDINGS: Mild cardiomegaly is unchanged. Mediastinum and pulmonary vessels are normal. Lungs are clear. Small bilateral pleural effusions noted IMPRESSION: Mild cardiomegaly and small bilateral pleural effusions. Interpreted and Authenticated by: Jaswinder Brannon 03/28/19
[2019-03-28] MEDS: CARVEDILOL 12.5 MG TABLET PO SCH (17:31)
[2019-03-28] MEDS ORDERED: APIXABAN 5 MG TABLET PO SCH (21:00)
[2019-03-28] MEDS ORDERED: HYDROCHLOROTHIAZIDE 12.5 MG CAPSULE PO SCH (21:00)
[2019-03-28] MEDS ORDERED: SENNOSIDES/DOCUSATE SODIUM 1 TAB TABLET PO SCH ×2 (21:00)
[2019-03-28] MEDS: HYDROCHLOROTHIAZIDE 12.5 MG CAPSULE PO SCH (21:22)
[2019-03-28] MEDS: APIXABAN 5 MG TABLET PO SCH (21:23)
[2019-03-28] MEDS: VANCOMYCIN 1,000 MG in 0.9 % SODIUM CHLORIDE 250 ML IV SCH (21:26)
[2019-03-29 05:13] LABS: Hematocrit 29.8 % (36.0-48.0); Hemoglobin 10.5 g/dL (12.0-15.0); Mean Cell Volume 91.2 fL (80.0-100.0); Mean Corpuscular HGB Conc 35.2 g/dL (31.0-36.0); Mean Platelet Volume 7.9 fL (7.4-10.4); Platelet Count 258 K/mcL (140-440); RBC 3.27 M/mcL (4.00-5.20); Red Cell Distribution Width 11.6 % (11.5-14.5); WBC 12.8 K/mcL (4.5-11.0)
[2019-03-29 05:40] LABS: ALT/SGPT 31 U/l (0-40); AST/SGOT 27 U/l (0-37); Albumin 2.6 gm/dL (3.2-5.2); Albumin/Globulin Ratio 0.9 (1.0-2.3); Alkaline Phosphatase 110 U/L (39-117); Bilirubin,Direct < 0.2 mg/dL (0.0-0.3); Bilirubin,Total 0.2 mg/dL (0.0-1.0); Blood Urea Nitrogen 12 mg/dl (8-23); Calcium 8.2 mg/dl (8.6-10.4); Carbon Dioxide 24 mmol/L (22-30); Chloride 98 mmol/L (96-108); Globulin 2.9 gm/dL (2.2-3.7); Glomerular Filtration Rate 82; Glucose 139 mg/dL (70-105); Lactate Dehydrogenase 155 U/L (94-250); Magnesium 1.9 mg/dL (1.6-2.5); Phosphorous 2.3 mg/dL (2.7-4.5); Potassium 4.4 mmol/L (3.3-5.1); Sodium 132 mmol/L (133-145); Triglycerides 52 mg/dl (<150); Uric Acid 1.5 mg/dL (2.5-8.0)
[2019-03-29] MEDS: PIPERACILLIN SODIUM/TAZOBACTAM 3.375 GM in DEXTROSE 5% IN WATER 50 ML IV SCH (05:41)
[2019-03-29] MEDS: 0.9 % SODIUM CHLORIDE 1,000 ML IV SCH (07:30)
[2019-03-29] MEDS: 0.9 % SODIUM CHLORIDE 10 ML SYRINGE IV SCH ×5 (07:30→20:34)
[2019-03-29 07:51] LABS: Lymphocytes % 12 % (15-49); Monocytes % (Manual) 5 % (1-12); Platelet Estimate NORMAL (NORMAL); RBC Morphology NORMAL (NORMAL); Segmented Neutrophils % 83 % (38-78)
[2019-03-29] MEDS: APIXABAN 5 MG TABLET PO SCH ×2 (08:11→20:28)
[2019-03-29] MEDS: CARVEDILOL 12.5 MG TABLET PO SCH ×2 (08:11→17:54)
[2019-03-29] MEDS: HYDROCHLOROTHIAZIDE 12.5 MG CAPSULE PO SCH ×2 (08:12→20:27)
[2019-03-29] MEDS: DOCUSATE SODIUM 100 MG CAPSULE PO SCH ×2 (08:13→20:32)
[2019-03-29] MEDS: ENOXAPARIN 60 MG/0.6 ML SYRINGE SQ SCH (08:49)
[2019-03-29] MEDS ORDERED: ASCORBIC ACID 500 MG TABLET PO SCH (09:00)
[2019-03-29] MEDS ORDERED: VITAMIN D3 5,000 UNIT CAPSULE PO SCH (09:00)
[2019-03-29] MEDS ORDERED: MULTIVIT,THER IRON,CA,FA & MIN 1 TABLET PO SCH ×2 (09:00)
[2019-03-29] MEDS ORDERED: ceFAZolin 2 GM in DEXTROSE 5% IN WATER 50 ML IV SCH (09:00)
[2019-03-29] MEDS ORDERED: ceFAZolin 1 GM VIAL IV SCH (10:00)
--- NOTE | 2019-03-29 10:14 | Internal Med Progress Note ---
Medical - PN: Subj Patient information: Note initiated : 03/29/19 at 10:12 am Service Date, if different from initiated Date: [] Patient: Suad Alcaraz a 78 y/o F admitted on 03/27/19 for right neck swelling, sorethroat. Chief Complaint: [] Interval history: Ms. Alcaraz is a 78 year old F otherwise healthy who presented the ER with worsening right-sided neck swelling and pain that evolved over the last 24 hours . Patient denies recent dental infection or mumps. She denies sore throat or pharyngitis or URI symptoms. Initial work-up in the ER was consistent with large abscess along with right IJ thrombosis. ENT was consulted and patient underwent operative drainage of the neck abscess. Postoperatively hospitalist service is consulted for management of IJ thrombosis/hyponatremia at 124/low potassium at 2.9. Patient was seen postoperatively. She denies active distress. She is currently on room air. She denies shaking chills, fever, diarrhea, shortness of breath. She further denies lightheadedness photophobia or tearing neck pain. She further denies bloody sputum/pleuritic chest pain. 03/28-patient doing a lot better. Improve neck pain swelling. Denies fever shaking chills chest pain or pleuritic chest pain. Denies night sweats or fever. On anticoagulation. Discussed treatment plan including continuation of antibiotics for additional 7 days along with anticoagulation in light of IJ thrombosis. Patient will likely discharge in 24 hours with outpatient follow-up with ENT. 03/29-uptrending white count of 12.8. Antibiotics de-escalated per ID to cefazolin and vancomycin based on staph aureus on culture. Wound examined with persistent drainage via [place]. Case discussed with ID/ENT Dr. Sandy. PICC line will be placed today for continued 4 to 6 weeks antibiotics as per ID s pecialist. Potassium up to 4.4, sodium 132 along with normalization of LFTs. Anticipate discharge in 24 hours based on culture sensitivity. Continue full dose anticoagulation on Eliquis - Constitutional Vitals: Vital Signs Temp Pulse Resp BP Pulse Ox 97.5 F 65 20 133/72 98 03/29/19 07:29 03/29/19 04:00 03/29/19 07:29 03/29/19 07:29 03/29/19 07:30 Period Temp Pulse Resp BP Sys/Zamorano Pulse Ox Last 24 Hr 97.5 F-99.2 F 63-74 16-20 118-138/53-72 94-100 Intake and Output 03/28/19 03/29/19 03/29/19 21:59 05:59 13:59 Intake Total 1510 350 250 Output Total 325 1300 200 Balance 1185 -950 50 Weight 147 lb 8 oz Intake & Output: Intake & Output 03/28/19 03/29/19 03/29/19 21:59 05:59 13:59 Intake Total 1510 350 250 Output Total 325 1300 200 Balance 1185 -950 50 Weight 147 lb 8 oz Intake: IV 50 300 50 Zosyn 3.375 gm In Dextrose 5% 50 50 50 in Water 50 ml @ 100 mls/hr IV Q6H [facility] Rx#:[id number] Vancomycin 1,000 mg In Sodium 250 Chloride 0.9% 250 ml @ 250 mls/ hr IV Q12H [facility] Rx#:[id number] Oral 1460 50 200 Output: Void Amount 325 1300 200 Other: Meal Dinner Percent of Meal Consumed 100% Feeding Ability Independent General appearance: no acute distress Exam: Neck exam persistent drainage right incision site/[place] Alert oriented Nonlabored breathing No lymphedema Medical - PN: Obj Da - Labs CBC & Chem 7: 03/29/19 03:40 03/29/19 03:40 Labs: Abnormal Lab Results 03/29/19 03/29/19 03/28/19 03:40 03:40 07:06 WBC 12.8 H RBC 3.27 L 3.80 L Hgb 10.5 L 11.9 L Hct 29.8 L 35.7 L POC Hct Lymph % (Auto) Lymph # (Auto) Seg Neutrophils % 83 H 87 H Lymphocytes % 12 L 8 L ESR POC Sodium Sodium 132 L POC Potassium POC Chloride Chloride POC BUN Glucose 139 H POC Glucose Uric Acid 1.5 L Calcium 8.2 L POC WB Ioniz Calcium Phosphorus 2.3 L GGT 72 H AST Alkaline Phosphatase C-Reactive Protein Total Protein 5.5 L Albumin 2.6 L Albumin/Globulin Ratio 0.9 L 03/28/19 03/27/19 03/27/19 07:05 22:45 22:45 WBC RBC Hgb Hct POC Hct Lymph % (Auto) Lymph # (Auto) Seg Neutrophils % Lymphocytes % ESR 54 H POC Sodium Sodium 126 L POC Potassium POC Chloride Chloride 93 L POC BUN Glucose 256 H POC Glucose Uric Acid 2.2 L Calcium 8.3 L POC WB Ioniz Calcium Phosphorus 1.9 L GGT 80 H AST Alkaline Phosphatase C-Reactive Protein 12.7 H Total Protein Albumin 2.7 L Albumin/Globulin Ratio 0.8 L 03/27/19 03/27/19 03/27/19 20:21 15:33 15:33 WBC RBC 3.42 L Hgb 10.6 L Hct 31.7 L POC Hct 33.0 L Lymph % (Auto) 14.5 L Lymph # (Auto) 1.3 L Seg Neutrophils % Lymphocytes % ESR POC Sodium 129 L Sodium 124 L POC Potassium 2.9 L* POC Chloride 91 L Chloride 86 L POC BUN 7 L Glucose 112 H POC Glucose 126 H Uric Acid Calcium 8.1 L POC WB Ioniz Calcium 1.07 L Phosphorus GGT AST 42 H Alkaline Phosphatase 126 H C-Reactive Protein Total Protein Albumin 3.1 L Albumin/Globulin Ratio 03/27/19 14:00 WBC RBC Hgb Hct POC Hct 31.0 L Lymph % (Auto) Lymph # (Auto) Seg Neutrophils % Lymphocytes % ESR POC Sodium 124 L Sodium POC Potassium 3.2 L POC Chloride 85 L Chloride POC BUN Glucose POC Glucose 119 H Uric Acid Calcium POC WB Ioniz Calcium 1.07 L Phosphorus GGT AST Alkaline Phosphatase C-Reactive Protein Total Protein Albumin Albumin/Globulin Ratio Meds: Medications Acetaminophen (Tylenol) 650 mg PO Q4-6HP PRN PRN Reason: PAIN/FEVER > 101 Apixaban (Eliquis) 10 mg PO BID [facility] Last Admin: 03/29/19 08:11 Dose: 10 mg Documented by: Ascorbic Acid (Vitamin C) 1,000 mg PO QDAY [facility] Last Admin: 03/29/19 08:12 Dose: 1,000 mg Documented by: [facility]) [facility] Last Admin: 03/29/19 08:11 Dose: 25 mg Documented by: Cefazolin Sodium (Ancef) 2 gm IV Q8H [facility] Docusate Sodium (Colace) 100 mg PO BID [facility] Last Admin: 03/29/19 08:13 Dose: Not Given Documented by: Guaifenesin/Codeine Phosphate (Robitussin Ac) 10 ml PO Q4HP PRN PRN Reason: Cough Hydrochlorothiazide (Oretic) 12.5 mg PO BID [facility] Last Admin: 03/29/19 08:12 Dose: 12.5 mg Documented by: Hydromorphone HCl (Dilaudid) 0 mg IV Q4HP PRN PRN Reason: PAIN LEVEL > 6 Potassium Chloride 40 meq/ (Dextrose) 520 mls @ 130 mls/hr IV UD PRN PRN Reason: K+ = or < 3.5 Magnesium Sulfate (Magnesium Sulfate) 2 gm in 50 mls @ 50 mls/hr IV UD PRN PRN Reason: MG = or < 1.7 Sodium Chloride (Sodium Chloride 0.9%) 1,000 mls @ 50 mls/hr IV .Q20H [facility] Stop: 03/30/19 10:36 Last Admin: 03/29/19 07:30 Dose: 50 mls/hr Documented by: Acetaminophen (Ofirmev) 1,000 mg in 100 mls @ 200 mls/hr IV Q6HP PRN PRN Reason: PAIN/FEVER > 101 Vancomycin HCl 1,000 mg/ (Sodium Chloride) 250 mls @ 250 mls/hr IV Q12H [facility] Last Infusion: 03/28/19 22:26 Dose: Infused Documented by: Iron Carb/Multivit/[place]/Folic Acid (Multivitamin W/Minerals) 1 tab PO DAILY [facility] Last Admin: 03/29/19 08:12 Dose: 1 tab Documented by: Magnesium Hydroxide (Milk Of Magnesia) 30 ml PO HSP PRN PRN Reason: Constipation Melatonin (Melatonin 3mg Tablet) 3 mg PO HSP PRN PRN Reason: Insomnia Ondansetron HCl (Zofran) 4 mg IV Q4-6HP PRN PRN Reason: Nausea And Vomiting Co Q-10 300mg 1 dose PO DAILY [facility] Last Admin: 03/29/19 08:13 Dose: Not Given Documented by: Potassium Chloride (Klor-Con) 40 meq PO DAILYP PRN PRN Reason: K+ < 3.5 Senna/Docusate Sodium (Senna Plus Tablet) 1 tab PO [facility] Last Admin: 03/28/19 21:22 Dose: 1 tab Documented by: Sodium Chloride (Saline Flush) 10 ml IV Q8 [facility] Last Admin: 03/29/19 07:30 Dose: 10 ml Documented by: Vancomycin HCl (Vancomycin Per Pharmacy) 1 order IV [facility] [place]; Protocol Vitamin D (Vitamin D3) 5,000 unit PO QDAY [facility] Last Admin: 03/29/19 08:12 Dose: 5,000 unit Documented by: Medical - PN: A/P - Time Spent With Patient Total time spent is greater than 50% in coordination of care (as documented) at patient's floor/unit and/or counseling patient: 25 - 35 minutes (1) Lemierre syndrome Status: Acute Assessment and plan: * 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 ID on board and recommends [address] PICC line today. * Neck abscess-status post drainage by ENT. Staph aureus on culture. 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 10 mg BID for 7 days followed by 5 mg twice daily with goal to continue anti-correlation for 3 months * Hyponatremia-likely secondary to alcoholism/hydrochlorothiazide use. Sodium improved to 132 * Hypokalemia-resolved with replacement. * History of hypertension continue Coreg/thiazide * Regular alcohol use-close monitoring for withdrawal * Full code * Prophylaxis currently full dose Lovenox Plan * Continue antibiotic coverage per ID * PICC line placement today * Anticipate discharge in 24 hours with outpatient follow-up with ID/ENT for removal of [place] drain * Anticoagulation on Eliquis for 3 months Current Visit: Yes Medical - PN: Qual - VTE Deep Vein Thrombosis/Pulmonary Embolism Present on Admission: No
[2019-03-29] MEDS: VANCOMYCIN 1,000 MG in 0.9 % SODIUM CHLORIDE 250 ML IV SCH (10:33)
[2019-03-29] MEDS ORDERED: ONDANSETRON 4 MG/2 ML VIAL IV PRN (12:07)
[2019-03-29] MEDS ORDERED: ACETAMINOPHEN 1,000 MG/100 ML BOTTLE IV PRN (12:07)
[2019-03-29] MEDS ORDERED: POTASSIUM CHLORIDE 20 MEQ PACKET PO PRN (12:07)
[2019-03-29] MEDS ORDERED: MAGNESIUM HYDROXIDE 30 ML ORAL.SUSP PO PRN (12:07)
[2019-03-29] MEDS ORDERED: MAGNESIUM SULFATE 2 GM/50 ML BAG IV PRN (12:07)
[2019-03-29] MEDS ORDERED: HYDROmorphone 2 MG/ML VIAL IV PRN (12:07)
[2019-03-29] MEDS ORDERED: POTASSIUM CHLORIDE 40 MEQ in DEXTROSE 5% IN WATER 500 ML IV PRN (12:07)
[2019-03-29] MEDS ORDERED: MELATONIN 3 MG TABLET PO PRN (12:07)
[2019-03-29] MEDS ORDERED: ACETAMINOPHEN 325 MG TABLET PO PRN (12:07)
[2019-03-29] MEDS ORDERED: VANCOMYCIN PER PHARMACY IV SCH (12:07)
[2019-03-29] MEDS ORDERED: guaiFENesin/CODEINE 10 ML UDC PO PRN (12:07)
--- NOTE | 2019-03-29 12:31 | Infectious Disease Prog Note ---
Subjective Patient information: Note initiated : 03/29/19 at 12:19 pm Service Date, if different from initiated Date: [] Patient: Suad Alcaraz 78 y/o F admitted on 03/27/19 for right neck swelling, sorethroat. Chief Complaint: [] Interval history: Pt sitting in chair. Doing well. Denied any fever, chills, n/v, diarrhea. Still has some drainage from the neck wound with abigail drain in situ. Discussed Cx results, PICC line placement and antibiotic deescalation. Objective - Vital Signs Vital signs: Vital Signs Temp Pulse Pulse Resp BP BP BP 03/29/19 12:09 36.9 C 18 132/73 03/29/19 07:30 03/29/19 07:29 36.4 C 20 133/72 03/29/19 04:00 36.7 C 65 16 138/63 03/28/19 23:40 36.6 C 74 18 137/60 03/28/19 19:55 37.3 C H 70 20 127/53 03/28/19 16:06 37.3 C H 66 16 126/56 Pulse Ox 03/29/19 12:09 99 03/29/19 07:30 98 03/29/19 07:29 97 03/29/19 04:00 95 03/28/19 23:40 94 03/28/19 19:55 96 03/28/19 16:06 97 Intake and Output 03/28/19 03/29/19 03/29/19 21:59 05:59 13:59 Intake Total 1510 350 625 Output Total 325 1300 200 Balance 1185 -950 425 Intake: IV 50 300 425 Sodium Chloride 0.9% 1,000 ml @ 125 50 mls/hr IV .Q20H [facility] Rx#: [id number] Zosyn 3.375 gm In Dextrose 5% 50 50 50 in Water 50 ml @ 100 mls/hr IV Q6H [facility] Rx#:[id number] Vancomycin 1,000 mg In Sodium 250 250 Chloride 0.9% 250 ml @ 250 mls/ hr IV Q12H [facility] Rx#:[id number] Oral 1460 50 200 Output: Void Amount 325 1300 200 Other: Meal Dinner Percent of Meal Consumed 100% Feeding Ability Independent Stool Size Moderate Stool Color Brown Stool Consistency Soft # Voids 1 # Bowel Movements 1 Weight 66.905 kg Intake & Output: Intake & Output 03/28/19 03/29/19 03/29/19 21:59 05:59 13:59 Intake Total 1510 350 625 Output Total 325 1300 200 Balance 1185 -950 425 Weight 66.905 kg Intake: IV 50 300 425 Sodium Chloride 0.9% 1,000 ml @ 125 50 mls/hr IV .Q20H [facility] Rx#: [id number] Zosyn 3.375 gm In Dextrose 5% 50 50 50 in Water 50 ml @ 100 mls/hr IV Q6H [facility] Rx#:[id number] Vancomycin 1,000 mg In Sodium 250 250 Chloride 0.9% 250 ml @ 250 mls/ hr IV Q12H [facility] Rx#:[id number] Oral 1460 50 200 Output: Void Amount 325 1300 200 Other: Meal Dinner Percent of Meal Consumed 100% Feeding Ability Independent Stool Size Moderate Stool Color Brown Stool Consistency Soft # Voids 1 # Bowel Movements 1 - Lab 03/30/19 04:11 03/30/19 04:11 Most recent lab results Calcium 8.2 mg/dl (8.6-10.4) L 03/29/19 03:40 Phosphorus 2.3 mg/dL (2.7-4.5) L 03/29/19 03:40 Magnesium 1.9 mg/dL (1.6-2.5) 03/29/19 03:40 Microbiology 03/27/19 21:37 Neck - Right Gram Stain - Final 03/27/19 21:37 Neck - Right Anaerobic Culture - Preliminary 03/27/19 21:37 Neck - Right Gram Stain - Final 03/27/19 21:37 Neck - Right Wound Culture - Preliminary Staphylococcus aureus 03/27/19 22:45 Blood Blood Culture - Preliminary 03/27/19 22:50 Blood Blood Culture - Preliminary 03/28/19 07:24 Nose - Both Right and Left MRSA (PCR) - Final Medications Active Medications: Acetaminophen (Tylenol) 650 mg PO Q4-6HP PRN PRN Reason: PAIN/FEVER > 101 Apixaban (Eliquis) 10 mg PO BID [facility] Ascorbic Acid (Vitamin C) 1,000 mg PO QDAY [facility] Carvedilol (Coreg) 25 mg PO BIDCC [facility] Cefazolin Sodium (Ancef) 2 gm IV Q8H [facility] Docusate Sodium (Colace) 100 mg PO BID [facility] Guaifenesin/Codeine Phosphate (Robitussin Ac) 10 ml PO Q4HP PRN PRN Reason: Cough Hydrochlorothiazide (Oretic) 12.5 mg PO BID [facility] Hydromorphone HCl (Dilaudid) 0 mg IV Q4HP PRN PRN Reason: PAIN LEVEL > 6 Potassium Chloride 40 meq/ (Dextrose) 520 mls @ 130 mls/hr IV UD PRN PRN Reason: K+ = or < 3.5 Magnesium Sulfate (Magnesium Sulfate) 2 gm in 50 mls @ 50 mls/hr IV UD PRN PRN Reason: MG = or < 1.7 Acetaminophen (Ofirmev) 1,000 mg in 100 mls @ 200 mls/hr IV Q6HP PRN PRN Reason: PAIN/FEVER > 101 Vancomycin HCl 1,000 mg/ (Sodium Chloride) 250 mls @ 250 mls/hr IV Q12H [facility] Iron Carb/Multivit/Tobacco Stripper Hand/Folic Acid (Multivitamin W/Minerals) 1 tab PO DAILY [facility] Magnesium Hydroxide (Milk Of Magnesia) 30 ml PO HSP PRN PRN Reason: Constipation Melatonin (Melatonin 3mg Tablet) 3 mg PO HSP PRN PRN Reason: Insomnia Ondansetron HCl (Zofran) 4 mg IV Q4-6HP PRN PRN Reason: Nausea And Vomiting Patient Own Medication () 1 dose PO DAILY [facility] Potassium Chloride (Klor-Con) 40 meq PO DAILYP PRN PRN Reason: K+ < 3.5 Senna/Docusate Sodium (Senna Plus Tablet) 1 tab PO HS [facility] Sodium Chloride (Saline Flush) 10 ml IV Q8 [facility] Vancomycin HCl (Vancomycin Per Pharmacy) 1 order IV UD [facility]; Protocol Vitamin D (Vitamin D3) 5,000 unit PO QDAY [facility] Assessment and Plan - Narrative A/P Narrative: A: 1. Rt parotid abscess with parotiditis: - POD 2 after I&D, wound Cx growing Staph aureus, sensi pending - no sepsis 2. Rt IJ vein thrombus: concerns for septic thrombophlebitis - US and CT s/o subocclusive thrombus in the proximal right internal jugular vein and complete occlusion in the mid/distal IJ segment in the region of abscess 3. No concerns for embolic phenomenon clinically - CXR neg for septic emboli Recommendations: - Continue IV Vanc per pharmacy assisted dosing. Serum vanc trough 15.1 this am - Stop IV Zosyn. Start IV Cefazolin 2 gm q8 grs - consider TTE to r/o any endocardial involvement - PICC line placement today - will make final recs about home going antibiotics tomorrow as sensi for Staph aureus would be available then. will follow Garett Benz MD Infectious diseases
[2019-03-29] MEDS: ceFAZolin 1 GM VIAL IV SCH ×2 (16:54→21:56)
[2019-03-29] MEDS ORDERED: VANCOMYCIN 1,000 MG in 0.9 % SODIUM CHLORIDE 250 ML IV SCH (21:00)
[2019-03-29] MEDS ORDERED: SENNOSIDES/DOCUSATE SODIUM 1 TAB TABLET PO SCH (21:00)
--- NOTE | 2019-03-30 05:14 | Discharge Summary ---
Medical - DS: Prov Patient information: Note initiated : 03/30/19 at 5:11 am Service Date, if different from initiated Date: [] Patient: Suad Alcaraz 78 y/o F admitted on 03/27/19 for right neck swelling, sorethroat. Chief Complaint: [] Date of admission: 03/27/19 22:30 Discharge date: 03/30/19 Primary care physician: Anna Brannon DO Consults: 03/27/19 17:53 Consult to Physician [CONS] Stat Comment: Consulting Provider: Jovan Sandy Reason For Exam: Physician to Consult 03/27/19 21:49 Consult to Physician [CONS] Routine Comment: Consulting Provider: Kirk Diego Reason For Exam: Physician to Consult 03/27/19 21:51 Consult to Physician [CONS] Routine Comment: Consulting Provider: Kirk Diego Reason For Exam: Physician to Consult 03/28/19 11:18 Consult to Physician [CONS] Routine Comment: Consulting Provider: Garett Benz Reason For Exam: Physician to Consult Medical - DS: Meds - Discharge Medications Prescriptions: Apixaban [Eliquis] 10 mg PO BID #16 tab Apixaban [Eliquis] 5 mg PO BID #60 tab.ds.pk Active and Home Medications: Home Medications ascorbic acid (vitamin C) 1,000 mg tablet 1,000 mg PO QDAY tab 12/09/15 [History Confirmed 03/27/19 Last Taken Unknown] calcium carbonate-vitamin D3 600 mg (1,500 mg)-400 unit capsule 1 cap PO DAILY 12/09/15 [History Confirmed 03/27/19 Last Taken Unknown] coenzyme Q10 300 mg capsule 300 mg PO QDAY 12/09/15 [History Confirmed 03/27/19 Last Taken Unknown] glucosamine HCl 1,500 mg tablet 1,500 mg PO QDAY 12/09/15 [History Confirmed 03/27/19 Last Taken Unknown] multivitamin tablet 1 tab PO QDAY tab 12/09/15 [History Confirmed 03/27/19 Last Taken Unknown] carvedilol 25 mg tablet 25 mg PO BID #180 tab 11/21/18 [Rx Confirmed 03/27/19 Last Taken Unknown] cholecalciferol (vitamin D3) 5,000 unit capsule 5,000 unit PO QDAY 11/21/18 [History Confirmed 03/27/19 Last Taken Unknown] raloxifene 60 mg tablet 60 mg PO QDAY #90 tab 11/21/18 [Rx Confirmed 03/29/19 Last Taken Unknown] hydrochlorothiazide 12.5 mg tablet 12.5 mg PO BID tab 01/09/19 [History Confirmed 03/27/19 Last Taken Unknown] omega-3 fatty acids 1,000 mg capsule 1,000 mg PO QDAY 01/09/19 [History Confirmed 03/29/19 Last Taken Unknown] Medical - DS: Hosp Hospital course: Discharge diagnosis * 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 MSSA culture. ID recommends 6 weeks antibiotic coverage. Discharge after PICC line placement today on antibiotics as per ID. * Neck abscess-status post drainage by ENT. MSSA on culture. Continue antibiotics as per ID. No CAD pump available. Will likely discharge on Rocephin. ID will ultimately decide on antibiotics and duration. 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 10 mg BID for 7 days followed by 5 mg twice daily for 3 months * Hyponatremia-likely secondary to alcoholism/hydrochlorothiazide use. Sodium normalized * Hypokalemia-resolved with replacement. * History of hypertension continue Coreg/thiazide * Regular alcohol use-close monitoring for withdrawal Brief hospital course Ms. Alcaraz is a 78 year old F otherwise healthy who presented the ER with worsening right-sided neck swelling and pain that evolved over the last 24 hours. Patient denies recent dental infection or mumps. She denies sore throat or pharyngitis or URI symptoms. Initial work-up in the ER was consistent with large abscess along with right IJ thrombosis. ENT was consulted and patient un derwent operative drainage of the neck abscess. Postoperatively hospitalist service is consulted for management of IJ thrombosis/hyponatremia at 124/low potassium at 2.9. Patient was seen postoperatively. She denies active distress. She is currently on room air. She denies shaking chills, fever, diarrhea, shortness of breath. She further denies lightheadedness photophobia or tearing neck pain. She further denies bloody sputum/pleuritic chest pain. 03/28-patient doing a lot better. Improve neck pain swelling. Denies fever shaking chills chest pain or pleuritic chest pain. Denies night sweats or fever. On anticoagulation. Discussed treatment plan including continuation of antibiotics for additional 7 days along with anticoagulation in light of IJ thrombosis. Patient will likely discharge in 24 hours with outpatient follow-up with ENT. 03/29-uptrending white count of 12.8. Antibiotics de-escalated per ID to cefazolin and vancomycin based on staph aureus on culture. Wound examined with persistent drainage via [place]. Case discussed with ID/ENT Dr. Sandy. PICC line will be placed today for continued 4 to 6 weeks antibiotics as per ID specialist. Potassium up to 4.4, sodium 132 along with normalization of LFTs. Anticipate discharge in 24 hours based on culture sensitivity. Continue full dose anticoagulation on Eliquis 03/30-patient doing well. Discharging on antibiotics as per ID recommendations. Patient will continue outpatient infusion. PICC line Will be placed prior to discharge. Detailed discharge instructions and recommendations as below. Continue anticoagulation on Eliquis for 3 months as advised scheduled outpatient appointment with ID and Dr. Sandy ENT for [place] drain removal and neck abscess follow-up. Discharge diagnosis: . - Time Spent with Patient Total time spent providing and/or coordinating discharge services: Greater than 30 minutes Medical - DS: Exam - Constitutional Vitals: Vital Signs Temp Pulse Pulse Resp BP BP BP 03/30/19 00:00 98.4 F 63 63 16 129/57 03/29/19 20:00 97.5 F 67 67 16 133/62 03/29/19 19:32 67 18 03/29/19 16:00 98.7 F 57 L 18 154/72 03/29/19 15:15 56 L 18 03/29/19 12:09 98.4 F 18 132/73 03/29/19 07:30 03/29/19 07:29 97.5 F 20 133/72 Pulse Ox 03/30/19 00:00 95 03/29/19 20:00 95 03/29/19 19:32 03/29/19 16:00 100 03/29/19 15:15 100 03/29/19 12:09 99 03/29/19 07:30 98 03/29/19 07:29 97 Intake and Output 03/29/19 03/29/19 03/30/19 13:59 21:59 05:59 Intake Total 1225 790 500 Output Total 650 850 500 Balance 575 -60 0 Intake: IV 425 250 Sodium Chloride 0.9% 1,000 ml @ 125 50 mls/hr IV .Q20H [facility] Rx#: [id number] Zosyn 3.375 gm In Dextrose 5% 50 in Water 50 ml @ 100 mls/hr IV Q6H [facility] Rx#:[id number] Vancomycin 1,000 mg In Sodium 250 250 Chloride 0.9% 250 ml @ 250 mls/ hr IV Q12H [facility] Rx#:[id number] Oral 800 490 250 IV - Manual Only 300 Output: Void Amount 200 850 500 Urine/Stool Mix 450 Other: Meal Breakfast Dinner Percent of Meal Consumed 75% 100% Feeding Ability Independent Independent Urine Appearance Clear Urine Color Bright Yellow Urine Odor Normal Stool Size Moderate Small Stool Color Brown Brown Stool Consistency Loose Loose # Voids 1 1 # Bowel Movements 1 1 Weight 146 lb Patient Weight 03/30/19 05:59 Weight 146 lb Medical - DS: Data Labs on day of discharge: Labs from last 24 hours 03/30/19 03/30/19 03/29/19 04:11 04:11 07:59 WBC Pending RBC Pending Hgb Pending Hct Pending MCV Pending MCH Pending MCHC Pending RDW Pending Plt Count Pending MPV Pending Total Counted Pending Seg Neutrophils % Band Neutrophils % Not Reportable Lymphocytes % Monocytes % (Manual) Platelet Estimate Pending RBC Morphology Pending Sodium Pending Potassium Pending Chloride Pending Carbon Dioxide Pending Anion Gap Pending BUN Pending Creatinine Pending GFR Calculation Pending Glucose Pending Uric Acid Pending Calcium Pending Phosphorus Pending Magnesium Pending Total Bilirubin Pending Direct Bilirubin Pending GGT Pending AST Pending ALT Pending Alkaline Phosphatase Pending Lactate Dehydrogenase Pending Total Protein Pending Albumin Pending Globulin Pending Albumin/Globulin Ratio Pending Triglycerides Pending Vancomycin Trough 15.1 03/29/19 03/29/19 03:40 03:40 WBC 12.8 H RBC 3.27 L Hgb 10.5 L Hct 29.8 L MCV 91.2 MCH 32.1 MCHC 35.2 RDW 11.6 Plt Count 258 MPV 7.9 Total Counted 100 Seg Neutrophils % 83 H Band Neutrophils % Lymphocytes % 12 L Monocytes % (Manual) 5 Platelet Estimate Normal RBC Morphology Normal Sodium 132 L Potassium 4.4 Chloride 98 Carbon Dioxide 24 Anion Gap 10.0 BUN 12 Creatinine 0.7 GFR Calculation 82 Glucose 139 H Uric Acid 1.5 L Calcium 8.2 L Phosphorus 2.3 L Magnesium 1.9 Total Bilirubin 0.2 Direct Bilirubin < 0.2 GGT 72 H AST 27 ALT 31 Alkaline Phosphatase 110 Lactate Dehydrogenase 155 Total Protein 5.5 L Albumin 2.6 L Globulin 2.9 Albumin/Globulin Ratio 0.9 L Triglycerides 52 Vancomycin Trough Preliminary micro results at discharge 03/27/19 22:45 Blood Culture - Preliminary Blood 03/27/19 22:50 Blood Culture - Preliminary Blood 03/27/19 21:37 Anaerobic Culture - Preliminary Neck - Right 03/27/19 21:37 Wound Culture - Preliminary Neck - Right Staphylococcus aureus Medical - DS: A/P - Patient/Caregiver Discharge Instructions Activity: increase activity as tolerated Diet: Regular Diet Additional Instructions: Continue IV antibiotics as directed by infectious disease specialist. MSSA on culture. No CAD pump available. Will likely discharge on Rocephin duration to be determined by ID. Follow-up with infectious disease specialist for continued antibiotics and follow-up/Dr. Du SULLIVAN for [place] drain removal Continue PICC line care Continue Eliquis 10 mg twice daily for 8 days followed by 5 mg twice daily(right internal jugular thrombosis) Return to ER if worsening fever chills, diarrhea, neck pain or chest pain noted. Reviewed the side effect profile of antibiotics. Side effects may include local reaction to rash, diarrhea or even C. difficile. Symptoms can be minimized by close follow-up with PCP/monitoring for side effects Prescriptions: Apixaban [Eliquis] 10 mg PO BID #16 tab Apixaban [Eliquis] 5 mg PO BID #60 tab.ds.pk Other Amb Orders: Outpatient PICC Care Location: None Selected - Problem Maintenance (1) Lemierre syndrome Status: Acute - Follow up Plan Follow up with: Anna Brannon DO [Primary Care Provider] - 04/09/19 10:00 am Gauri Stover DO [Physician] - 04/02/19 11:15 am (Please arrive at 10:50 and bring your insuarance card with you.) Disposition: Home, Self-Care Prognosis: Fair Rehab Potential: Fair I certify that the patient requires SNF services: No Overall status at discharge: patient is progressing back to baseline Medical - DS: Qual - VTE Deep Vein Thrombosis/Pulmonary Embolism Present on Admission: No
[2019-03-30] MEDS: ceFAZolin 1 GM VIAL IV SCH ×2 (05:25→13:31)
[2019-03-30] MEDS: 0.9 % SODIUM CHLORIDE 10 ML SYRINGE IV SCH ×2 (05:26→13:32)
[2019-03-30 05:36] LABS: Hematocrit 33.3 % (36.0-48.0); Mean Cell Volume 93.6 fL (80.0-100.0); Mean Platelet Volume 7.7 fL (7.4-10.4); Platelet Count 301 K/mcL (140-440); RBC 3.55 M/mcL (4.00-5.20); Red Cell Distribution Width 12.6 % (11.5-14.5)
[2019-03-30 05:44] LABS: ALT/SGPT 30 U/l (0-40); AST/SGOT 28 U/l (0-37); Albumin 2.8 gm/dL (3.2-5.2); Albumin/Globulin Ratio 0.9 (1.0-2.3); Alkaline Phosphatase 99 U/L (39-117); Bilirubin,Direct < 0.2 mg/dL (0.0-0.3); Bilirubin,Total < 0.2 mg/dL (0.0-1.0); Blood Urea Nitrogen 15 mg/dl (8-23); Calcium 8.8 mg/dl (8.6-10.4); Carbon Dioxide 26 mmol/L (22-30); Chloride 99 mmol/L (96-108); Globulin 3.1 gm/dL (2.2-3.7); Glomerular Filtration Rate 61; Glucose 103 mg/dL (70-105); Lactate Dehydrogenase 170 U/L (94-250); Magnesium 1.9 mg/dL (1.6-2.5); Phosphorous 2.8 mg/dL (2.7-4.5); Potassium 4.5 mmol/L (3.3-5.1); Sodium 134 mmol/L (133-145); Triglycerides 75 mg/dl (<150); Uric Acid 2.3 mg/dL (2.5-8.0)
[2019-03-30 07:19] LABS: Eosinophils % (Manual) 2 % (0-7); Lymphocytes % 32 % (15-49); Monocytes % (Manual) 5 % (1-12); Platelet Estimate NORMAL (NORMAL); Polychromasia 1+ (NONE SEEN); RBC Morphology ABNORM (NORMAL); Segmented Neutrophils % 61 % (38-78)
[2019-03-30] MEDS: APIXABAN 5 MG TABLET PO SCH (08:05)
[2019-03-30] MEDS: HYDROCHLOROTHIAZIDE 12.5 MG CAPSULE PO SCH (08:07)
[2019-03-30] MEDS: DOCUSATE SODIUM 100 MG CAPSULE PO SCH (08:07)
[2019-03-30] MEDS: CARVEDILOL 12.5 MG TABLET PO SCH (08:07)
[2019-03-30] MEDS ORDERED: ASCORBIC ACID 500 MG TABLET PO SCH (09:00)
[2019-03-30] MEDS ORDERED: CO Q10 300 MG PO SCH (09:00)
[2019-03-30] MEDS ORDERED: MULTIVIT,THER IRON,CA,FA & MIN 1 TABLET PO SCH (09:00)
[2019-03-30] MEDS ORDERED: VITAMIN D3 5,000 UNIT CAPSULE PO SCH (09:00)
--- NOTE | 2019-03-30 09:33 | XRay Report ---
CLINICAL INFORMATION: PICC PLACEMENT COMPARISON: 03/28/2019 FINDINGS: Left PICC line tip overlies the left brachycephalic vein. The heart is mildly enlarged, but stable. Mediastinum and pulmonary vessels are normal. Mild patchy airspace disease as progressed the left base and may represent infiltrate. Small bilateral pleural effusions are stable IMPRESSION: 1. PICC line tip overlying the left brachiocephalic vein. There is a structure advanced the line 8 cm 2. Small patchy infiltrate left base worsening 3. Small bilateral pleural effusions Interpreted and Authenticated by: Jaswinder Brannon 03/30/19
--- NOTE | 2019-03-30 11:20 | Infectious Disease Prog Note ---
Subjective Patient information: Note initiated : 03/30/19 at 11:01 am Service Date, if different from initiated Date: [] Patient: Suad Alcaraz 78 y/o F admitted on 03/27/19 for right neck swelling, sorethroat. Chief Complaint: [] Interval history: Pt feeling better. Denied any fever, chills, neck pain, n/v, diarrhea. Still has some drainage. Shared the sensitivities of Staph aureus, plan to do IV Cefazolin. After discussion about risks of using Cefeazolin vs Ceftriaxone for blood infections, and hospital does not have additional CADD pumps, Pt wanted to do Cefazolin; she would be able to come to hospital 3 times daily. Mentioned that it would be only for few days as a CADD pump would be available in coming week sometime. Objective Objective Narrative: ao x 3, in nad right side diony neck under dressing, non tender, some sero sanguineous drainage no thrush - Vital Signs Vital signs: Vital Signs Temp Pulse Pulse Resp BP BP BP 03/30/19 09:00 36.7 C 20 136/70 03/30/19 05:18 37.1 C 64 64 16 131/64 03/30/19 00:00 36.9 C 63 63 16 129/57 03/29/19 20:00 36.4 C 67 67 16 133/62 03/29/19 19:32 67 18 03/29/19 16:00 37.1 C 57 L 18 154/72 03/29/19 15:15 56 L 18 03/29/19 12:09 36.9 C 18 132/73 Pulse Ox 03/30/19 09:00 98 03/30/19 05:18 95 03/30/19 00:00 95 03/29/19 20:00 95 03/29/19 19:32 03/29/19 16:00 100 03/29/19 15:15 100 03/29/19 12:09 99 Intake and Output 03/29/19 03/30/19 03/30/19 21:59 05:59 13:59 Intake Total 790 500 Output Total 850 1500 Balance -60 -1000 Intake: IV 250 Vancomycin 1,000 mg In Sodium 250 Chloride 0.9% 250 ml @ 250 mls/ hr IV Q12H [facility] Rx#:[id number] Oral 490 250 IV - Manual Only 300 Output: Void Amount 850 1500 Other: Meal Dinner Percent of Meal Consumed 100% Feeding Ability Independent Urine Appearance Clear Urine Color Bright Yellow Urine Odor Normal Stool Size Small Stool Color Brown Stool Consistency Loose # Voids 1 # Bowel Movements 1 Weight 66.224 kg Intake & Output: Intake & Output 03/29/19 03/30/19 03/30/19 21:59 05:59 13:59 Intake Total 790 500 Output Total 850 1500 Balance -60 -1000 Weight 66.224 kg Intake: IV 250 Vancomycin 1,000 mg In Sodium 250 Chloride 0.9% 250 ml @ 250 mls/ hr IV Q12H [facility] Rx#:[id number] Oral 490 250 IV - Manual Only 300 Output: Void Amount 850 1500 Other: Meal Dinner Percent of Meal Consumed 100% Feeding Ability Independent Urine Appearance Clear Urine Color Bright Yellow Urine Odor Normal Stool Size Small Stool Color Brown Stool Consistency Loose # Voids 1 # Bowel Movements 1 - Lab 03/30/19 04:11 03/30/19 04:11 Most recent lab results Calcium 8.8 mg/dl (8.6-10.4) 03/30/19 04:11 Phosphorus 2.8 mg/dL (2.7-4.5) 03/30/19 04:11 Magnesium 1.9 mg/dL (1.6-2.5) 03/30/19 04:11 Microbiology 03/27/19 21:37 Neck - Right Gram Stain - Final 03/27/19 21:37 Neck - Right Wound Culture - Preliminary Staphylococcus aureus 03/27/19 22:45 Blood Blood Culture - Preliminary 03/27/19 22:50 Blood Blood Culture - Preliminary 03/27/19 21:37 Neck - Right Gram Stain - Final 03/27/19 21:37 Neck - Right Anaerobic Culture - Preliminary 03/28/19 07:24 Nose - Both Right and Left MRSA (PCR) - Final Medications Active Medications: Acetaminophen (Tylenol) 650 mg PO Q4-6HP PRN PRN Reason: PAIN/FEVER > 101 Apixaban (Eliquis) 10 mg PO BID [facility] Last Admin: 03/30/19 08:05 Dose: 10 mg Documented by: [email or web address] Admin: 03/29/19 20:28 Dose: 10 mg Documented by: [email or web address] Ascorbic Acid (Vitamin C) 1,000 mg PO QDAY [facility] Last Admin: 03/30/19 08:06 Dose: 1,000 mg Documented by: MONIKA Carvedilol (Coreg) 25 mg PO BIDCC [facility] Last Admin: 03/30/19 08:07 Dose: 25 mg Documented by: Admin: 03/29/19 17:54 Dose: 25 mg Documented by: [email or web address] Cefazolin Sodium (Ancef) 2 gm IV Q8H [facility] Last Admin: 03/30/19 05:25 Dose: 2 gm Documented by: Admin: 03/29/19 21:56 Dose: 2 gm Documented by: Admin: 03/29/19 16:54 Dose: 2 gm Documented by: [email or web address] Docusate Sodium (Colace) 100 mg PO BID [facility] Last Admin: 03/30/19 08:07 Dose: 100 mg Documented by: Admin: 03/29/19 20:32 Dose: Not Given Documented by: DAISHA Non-Admin Reason: Patient Refused Guaifenesin/Codeine Phosphate (Robitussin Ac) 10 ml PO Q4HP PRN PRN Reason: Cough Heparin Sodium (Porcine) (Heparin Flush) 2 ml IV Q12 [facility] Last Admin: 03/30/19 09:57 Dose: 2 ml Documented by: [email or web address] Hydrochlorothiazide (Oretic) 12.5 mg PO BID [facility] Last Admin: 03/30/19 08:07 Dose: 12.5 mg Documented by: Admin: 03/29/19 20:27 Dose: 12.5 mg Documented by: DAISHA Hydromorphone HCl (Dilaudid) 0 mg IV Q4HP PRN PRN Reason: PAIN LEVEL > 6 Potassium Chloride 40 meq/ (Dextrose) 520 mls @ 130 mls/hr IV UD PRN PRN Reason: K+ = or < 3.5 Magnesium Sulfate (Magnesium Sulfate) 2 gm in 50 mls @ 50 mls/hr IV UD PRN PRN Reason: MG = or < 1.7 Acetaminophen (Ofirmev) 1,000 mg in 100 mls @ 200 mls/hr IV Q6HP PRN PRN Reason: PAIN/FEVER > 101 Iron Carb/Multivit/Bates/Folic Acid (Multivitamin W/Minerals) 1 tab PO DAILY [facility] Last Admin: 03/30/19 08:07 Dose: 1 tab Documented by: MONIKA Magnesium Hydroxide (Milk Of Magnesia) 30 ml PO HSP PRN PRN Reason: Constipation Melatonin (Melatonin 3mg Tablet) 3 mg PO HSP PRN PRN Reason: Insomnia Ondansetron HCl (Zofran) 4 mg IV Q4-6HP PRN PRN Reason: Nausea And Vomiting Co Q-10 300 Mg Tab 1 dose PO DAILY [facility] Last Admin: 03/30/19 08:13 Dose: Not Given Documented by: MONIKA Non-Admin Reason: Unavailable Potassium Chloride (Klor-Con) 40 meq PO DAILYP PRN PRN Reason: K+ < 3.5 Senna/Docusate Sodium (Senna Plus Tablet) 1 tab PO HS [facility] Last Admin: 03/29/19 20:32 Dose: Not Given Documented by: ADISHA Non-Admin Reason: Patient Refused Sodium Chloride (Saline Flush) 10 ml IV Q8 [facility] Last Admin: 03/30/19 05:26 Dose: 10 ml Documented by: Admin: 03/29/19 20:34 Dose: 10 ml Documented by: Admin: 03/29/19 13:00 Dose: 10 ml Documented by: BRISA Vancomycin HCl (Vancomycin Per Pharmacy) 1 order IV UD [facility]; Protocol Vitamin D (Vitamin D3) 5,000 unit PO QDAY [facility] Last Admin: 03/30/19 08:13 Dose: 5,000 unit Documented by: MONIKA Assessment and Plan - Narrative A/P Narrative: A: 1. Rt parotid abscess with parotiditis: - POD 3 after I&D, wound Cx growing methicillin sensitive Staph aureus - no sepsis 2. Right IJ vein thrombus: concerns for septic thrombophlebitis - US and CT s/o subocclusive thrombus in the proximal right internal jugular vein and complete occlusion in the mid/distal IJ segment in the region of abscess - on anticoagulation - TTE neg for any obvious vegetations 3. No concerns for embolic phenomenon clinically - CXR neg for septic emboli Recommendations: - Continue IV Cefazolin 2 gm q8 grs through left arm PICC line - Pt counseled about PICC line care, side effects of antibiotics including sympt of Cdiff diarrhea and to call us if she has it - Stop IV Vanc - Home going antibiotics as: Start date: 03/27/19 Stop date: 05/08/19 ID clinic follow up on 07/11/19 at 10 am Follow up labs: ESR and CRP every other week CBC and BMP once weekly Garett Benz MD Infectious diseases
== END 2019-03-30 15:15 | disposition home or self-care (01) | DRG 300 ==
LOC: ED 13:27 → SSSU 20:03 → ICU 22:30 → MEDSUR 03-29 14:49
PROVIDERS: ADMIT Internal Medicine; ATTEND Internal Medicine